=== PATIENT | male | born 1995 | race Caucasian/White ===

== ENCOUNTER 2024-03-03 15:22 | Outpatient (CLI) | payer BC, SELFPAY | END 2024-03-03 15:23 | disposition home or self-care (01) | PROVIDERS: PCP Family Medicine; Visit Provider Family Medicine | DX: R53.83 Other fatigue (principal); F33.9 Major depressive disorder, recurrent, unspecified; F41.1 Generalized anxiety disorder; Z13.6 Encounter for screening for cardiovascular disorders | CPT/HCPCS: 80053; 80061; 84443 ==

== ENCOUNTER 2024-06-21 16:13 | Emergency (ER) | payer BC, SELFPAY ==
[2024-06-21 16:25] VITALS: BP 148/87; PULSE 90; RESP 18; TEMP 37.2; O2SAT 98; BMI 29.1
--- NOTE | 2024-06-21 17:24 | CRLHL7_ITS ---
For Patients: As a result of the Cures Act, medical imaging exams and procedure reports are released immediately into your electronic medical record. You may view this report before your referring provider. If you have questions, please contact your health care provider. INDICATION: Chest pain TECHNIQUE: Chest radiograph 2 views COMPARISON: None FINDINGS: Mediastinum: The mediastinum is normal in appearance. The heart silhouette is normal in size and morphology. Lung: Both lungs are unremarkable in appearance. No sign of pleural effusion seen. No pneumothorax is identified. Bone and Soft tissue: Unremarkable for age. IMPRESSION: 1. No acute cardiopulmonary disease is seen. Dictated by: Micheal Pastor MD @ 06/21/2024 18:08:11 (Electronically Signed)
--- NOTE | 2024-06-21 17:28 | ED.CHESTPAIN ---
HPI - Chest Pain General Date Seen: 06/21/24 <Jt White MD - Last Filed: 06/21/24 18:22> Chief Complaint: Chest Pain <Jt White MD - Last Filed: 06/21/24 18:22> Stated Complaint: left chest pain/dizziness <Jt White MD - Last Filed: 06/21/24 18:22> Time Seen by Provider: 06/21/24 17:14 <Jt White MD - Last Filed: 06/21/24 18:22> Source: patient <Jt White MD - Last Filed: 06/21/24 18:22> Mode of arrival: ambulatory <Jt White MD - Last Filed: 06/21/24 18:22> Limitations: no limitations <Jt White MD - Last Filed: 06/21/24 18:22> History of Present Illness HPI narrative: Patient is a very nice 29-year-old gentleman who presents here with chest pain that he has had now for a few days, it comes and goes, lasting for a few minutes to 30-40. Describes is anterior chest with some radiation to his neck associated with this. He says this may be from his anxiety but he is unsure. As he has never had this before denies any history of exertional component to this or working causes it to were worsened, it has had actually happened when he has been resting laying down more consistently over the few days. He went home from work early yesterday, and did get an appointment in early June to see his primary physician but thought he should come in and get seen. Denies any elevated heart rate associated with this any leg swelling history of DVTs or pulmonary emboli. With no family history of any blood dyscrasias. Cardiac risk factors include male he does chew tobacco, but has never smoked, no history of cardiac disease or strokes in the family, no history of elevated cholesterol, diabetes, use of illicit substances, or hypertension <Jt White MD - Last Filed: 06/21/24 18:22> MD complaint: chest heaviness and chest discomfort <Jt White MD - Last Filed: 06/21/24 18:22> Onset (ago): day(s) <Jt White MD - Last Filed: 06/21/24 18:22> Timing of current episode: episodic <Jt White MD - Last Filed: 06/21/24 18:22> Prior episodes: Yes <Jt White MD - Last Filed: 06/21/24 18:22> Onset: during rest <Jt White MD - Last Filed: 06/21/24 18:22> Pain location: substernal and left chest <Jt White MD - Last Filed: 06/21/24 18:22> Pain radiation: neck and jaw/teeth <tJ White MD - Last Filed: 06/21/24 18:22> Severity: moderate <Jt White MD - Last Filed: 06/21/24 18:22> Quality: tightness and heaviness <Jt White MD - Last Filed: 06/21/24 18:22> Relieving factors: medication-other <Jt White MD - Last Filed: 06/21/24 18:22> Exacerbating factors: nothing <Jt White MD - Last Filed: 06/21/24 18:22> Treatment prior to arrival: none <Jt White MD - Last Filed: 06/21/24 18:22> Risk Factors Coronary artery disease risk factors: none <Jt White MD - Last Filed: 06/21/24 18:22> Thoracic aortic dissection risk factors: none <Jt White MD - Last Filed: 06/21/24 18:22> Related Data Home Medications: Previous Rx's ?Medication ?Instructions ?Recorded escitalopram oxalate 10 mg tablet 10 mg PO QDAY #30 tabs 04/30/24 (Lexapro) <Jt White MD - Last Filed: 06/21/24 18:22> Allergies/Adverse Reactions: Allergies Allergy/AdvReac Type Severity Reaction Status Date / Time No Known Drug Allergies Allergy Verified 06/21/24 16:31 <Jt White MD - Last Filed: 06/21/24 18:22> Review of Systems Status of ROS Reports: 10 or more systems reviewed and unremarkable except as noted in History and below <Jt White MD - Last Filed: 06/21/24 18:22> [facility] Medical History: Medical History Chewing tobacco dependence ?F17.220 - Nicotine dependence, chewing tobacco, uncomplicated (ICD-10) Dyslipidemia (02/2024) ?E78.5 - Hyperlipidemia, unspecified (ICD-10) Major depression, recurrent ?F33.9 - Major depressive disorder, recurrent, unspecified (ICD-10) ABBE (generalized anxiety disorder) ?F41.1 - Generalized anxiety disorder (ICD-10) Hx of atypical nevus ?Z87.898 - Personal history of other specified conditions (ICD-10) <Jt White MD - Last Filed: 06/21/24 18:22> Surgical History: Surgical History History of appendectomy (02/01/20) ?Z90.49 - Acquired absence of other specified parts of digestive tract (ICD-10) <Jt White MD - Last Filed: 06/21/24 18:22> Family History: Family History Mother Breast cancer, Onset Age: 56 Father Cancer Depression with anxiety Sister Depression with anxiety <Jt White MD - Last Filed: 06/21/24 18:22> Social History: Social History Narrative: 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, 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, 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, lives in [place], engaged Chews tobacco nonsmoker 8 pari/ week on average No formal exercise, does get exercise at work What is your current living situation?: I presently have a place to live Problems where you live: no known problems In the past 12 months, utilities in danger of being shut off: no In past 12 months, lack of transportation kept you from medical appts, meetings, work, or getting things needed for daily living: no In the past 12 mos, have been you worried that your food would run out before you had money to buy more?: never true In the past 12 mos, the food you bought just didn't last and you didn't have money to buy more?: never true How often does anyone, including family, friends and others, physically hurt you: never How often does anyone, including family, friends and others, insult or talk down to you: never How often does anyone, including family, friends and others, threaten you with harm: never How often does anyone, including family, friends and others, scream or curse at you: never <Jt White MD - Last Filed: 06/21/24 18:22> Exam Narrative Exam Narrative: On examination in room 4 patient is no apparent distress, alert oriented x3 slightly anxious. Pupils equal round reactive to light there is no scleral icterus redness TMs are normal oropharynx normal neck is supple full range of motion chest is good air entry bilaterally no wheezing crackles noted heart sounds are normal no clicks murmurs or gallops his abdomen is soft there is no guarding no organomegaly negative Seay sign moves all extremities independently well no swelling, no edema, skin reveals no petechiae rashes <Jt White MD - Last Filed: 06/21/24 18:22> Const Vital Signs, click to edit/add: Vital Signs - 24 hr 06/21/24 16:25 06/21/24 18:06 06/21/24 18:15 Temperature 99.0 F Pulse Rate [Pulse Oximeter] 90 Respiratory Rate 18 14 17 Blood Pressure [Right Upper Arm] 148/87 H Pulse Oximetry 98 Oxygen Delivery Method Room Air <Jt White MD - Last Filed: 06/21/24 18:22> Vital Signs - 24 hr 06/21/24 16:25 06/21/24 18:06 06/21/24 18:15 Temperature 99.0 F Pulse Rate [Pulse Oximeter] 90 Respiratory Rate 18 14 17 Blood Pressure [Right Upper Arm] 148/87 H Pulse Oximetry 98 Oxygen Delivery Method Room Air <Fatmata Garcia MD - Last Filed: 06/21/24 19:22> Documenting provider has reviewed patient's vital signs: yes <Jt White MD - Last Filed: 06/21/24 18:22> Course Vital Signs Vital signs: Initial Vital Signs Temperature 99.0 F 06/21/24 16:25 Temperature Source Temporal Artery Scan 06/21/24 16:25 Pulse Rate 90 06/21/24 16:25 Respiratory Rate 18 06/21/24 16:25 Blood Pressure 148/87 H 06/21/24 16:25 Blood Pressure Mean 107 H 06/21/24 16:25 Blood Pressure Position Sitting 06/21/24 16:25 Pulse Oximetry 98 06/21/24 16:25 Oxygen Delivery Method Room Air 06/21/24 16:25 Vital Signs Temperature 99.0 F 06/21/24 16:25 Pulse Rate 90 06/21/24 16:25 Respiratory Rate 18 06/21/24 16:25 Blood Pressure 148/87 H 06/21/24 16:25 Pulse Oximetry 98 06/21/24 16:25 Oxygen Delivery Method Room Air 06/21/24 16:25 Temperature 99.0 F 06/21/24 16:25 Pulse Rate 90 06/21/24 16:25 Respiratory Rate 17 06/21/24 18:15 Blood Pressure 148/87 H 06/21/24 16:25 Pulse Oximetry 98 06/21/24 16:25 Oxygen Delivery Method Room Air 06/21/24 16:25 <Jt White MD - Last Filed: 06/21/24 18:22> Initial Vital Signs Temperature 99.0 F 06/21/24 16:25 Temperature Source Temporal Artery Scan 06/21/24 16:25 Pulse Rate 90 06/21/24 16:25 Respiratory Rate 18 06/21/24 16:25 Blood Pressure 148/87 H 06/21/24 16:25 Blood Pressure Mean 107 H 06/21/24 16:25 Blood Pressure Position Sitting 06/21/24 16:25 Pulse Oximetry 98 06/21/24 16:25 Oxygen Delivery Method Room Air 06/21/24 16:25 Vital Signs Temperature 99.0 F 06/21/24 16:25 Pulse Rate 90 06/21/24 16:25 Respiratory Rate 18 06/21/24 16:25 Blood Pressure 148/87 H 06/21/24 16:25 Pulse Oximetry 98 06/21/24 16:25 Oxygen Delivery Method Room Air 06/21/24 16:25 Temperature 99.0 F 06/21/24 16:25 Pulse Rate 90 06/21/24 16:25 Respiratory Rate 17 06/21/24 18:15 Blood Pressure 148/87 H 06/21/24 16:25 Pulse Oximetry 98 06/21/24 16:25 Oxygen Delivery Method Room Air 06/21/24 16:25 <Fatmata Garcia MD - Last Filed: 06/21/24 19:22> Medications Administered Medications: Discontinued Medications Generic Name Dose Route Start Last Admin Trade Name Freq PRN Reason Stop Dose Admin Aspirin 324 mg 06/21/24 17:23 06/21/24 17:59 Aspirin 81 Mg Tab.Chew PO 06/21/24 17:24 324 mg ONCE ONE Administration Sodium Chloride 1,000 mls @ 1,000 mls/hr 06/21/24 17:30 06/21/24 18:45 0.9 % Sodium Chloride 1000 Ml IV 06/21/24 18:29 Infused .Q1H MIRACLE Infusion Pantoprazole Sodium 40 mg 06/21/24 17:23 06/21/24 17:59 Pantoprazole Sodium 40 Mg Inj IVP 06/21/24 17:24 40 mg ONCE ONE Administration <Jt White MD - Last Filed: 06/21/24 18:22> Discontinued Medications Generic Name Dose Route Start Last Admin Trade Name Freq PRN Reason Stop Dose Admin Aspirin 324 mg 06/21/24 17:23 06/21/24 17:59 Aspirin 81 Mg Tab.Chew PO 06/21/24 17:24 324 mg ONCE ONE Administration Sodium Chloride 1,000 mls @ 1,000 mls/hr 06/21/24 17:30 06/21/24 18:45 0.9 % Sodium Chloride 1000 Ml IV 06/21/24 18:29 Infused .Q1H M[place]LE Infusion Pantoprazole Sodium 40 mg 06/21/24 17:23 06/21/24 17:59 Pantoprazole Sodium 40 Mg Inj IVP 06/21/24 17:24 40 mg ONCE ONE Administration <Fatmata Garcia MD - Last Filed: 06/21/24 19:22> MDM - Chest Pain MDM Narrative Medical decision making narrative: During the evaluation of this patient I considered multiple differential diagnosis is. The life-threatening differential diagnosis include coronary disease/OR, pulmonary embolism, pneumothorax, pneumonia, and aortic dissection. Other differential diagnosis included but were not limited to pericarditis, myocarditis, chest wall pain, GERD, esophageal rupture, rib fracture contusion, pleurisy, as well as other etiologies. Patient's workup I think should include a troponin but we can get by with just doing 1 given his 4 day history of pain, his symptoms if his D-dimer is negative I think would be reasonable to place him on Protonix like medication, for possible reflux but a follow-up stress test would also be indicated with this. I will sign him over I have my partner for further delineation but I believe he should be able to go home, <Jt White MD - Last Filed: 06/21/24 18:22> During the evaluation of this patient I considered multiple differential diagnosis is. The life-threatening differential diagnosis include coronary disease/OR, pulmonary embolism, pneumothorax, pneumonia, and aortic dissection. Other differential diagnosis included but were not limited to pericarditis, myocarditis, chest wall pain, GERD, esophageal rupture, rib fracture contusion, pleurisy, as well as other etiologies. Patient's workup I think should include a troponin but we can get by with just doing 1 given his 4 day history of pain, his symptoms if his D-dimer is negative I think would be reasonable to place him on Protonix like medication, for possible reflux but a follow-up stress test would also be indicated with this. I will sign him over I have my partner for further delineation but I believe he should be able to go home, This patient was signed out to me by my colleague for check of D-dimer and troponin results. Both are negative and reassuring. Patient is pain-free at this time. 1. Atypical chest [id number] at this time. Patient was given Protonix in the ED. laboratory tests were reassuring. Stress test has been ordered by my colleague. Patient is to limit activity which increases heart rate greatly. Does include running, sexual activity. Return to the ER as needed for worsening discomfort. 2. Disposition-home at this time. Return as needed. <Fatmata Garcia MD - Last Filed: 06/21/24 19:22> Medical Records Data Attestation: I reviewed the patient's medical records. <Jt White MD - Last Filed: 06/21/24 18:22> Lab Data Attestation: I reviewed the patient's lab results. <Jt White MD - Last Filed: 06/21/24 18:22> Labs: Lab Results 06/21/24 06/21/24 Range/Units 17:40 18:17 WBC 7.26 (4.50-11.00) K/uL RBC 5.18 (4.30-5.90) m/uL Hgb 15.7 (13.5-17.5) gm/dL Hct 45.0 (37.0-53.0) % MCV 87 (80-100) fL MCH 30 (26-34) pg MCHC 35 (32-36) gm/dL RDW Coeff of Srinivas 12.8 (11.5-15.5) % Plt Count 221 (140-440) K/uL Neut % (Auto) 67.6 (42.0-72.0) % Lymph % (Auto) 20.5 (20-44) % [place] % (Auto) 8.0 (0.0-11.0) % Eos % (Auto) 3.4 (0.0-7.0) % Baso % (Auto) 0.4 (0.0-3.0) % Neut # (Auto) 4.90 (1.7-7.0) K/uL Lymph # (Auto) 1.49 (0.90-2.90) K/uL [place] # (Auto) 0.60 (0.00-0.90) K/UL Eos # (Auto) 0.25 (0.00-0.50) K/uL Baso # (Auto) 0.03 (0.00-0.30) K/uL Abs Immat Gran (auto) 0.01 (0.00-0.30) K/uL Imm/Tot Granulo (auto) 0.1 % INR 0.95 (0.91-1.10) APTT 25 (23-33) Seconds D-Dimer Quant (PE/DVT) < 0.27 (0.00-0.50) ug/ml Sodium 140 (135-149) mmol/L Potassium 4.3 (3.6-5.1) mmol/L Chloride 102 (96-114) mmol/L Carbon Dioxide 29 (20-32) mmol/L Anion Gap 9 (7-15) mEq/L BUN 17 (5-24) mg/dL Creatinine 0.8 (0.5-1.5) mg/dL Estimated Creat Clear 161.37 Estimated GFR 122 ml/min Glucose 105 (60-115) mg/dL Calcium 9.6 (8.4-10.6) mg/dL Total Bilirubin 0.6 (0.1-1.5) mg/dL Direct Bilirubin 0.3 (0.0-0.5) mg/dL AST 49 H (12-35) U/L ALT 68 H (4-50) U/L Alkaline Phosphatase 71 (40-150) U/L Troponin I < 0.01 (0.01-0.04) ng/mL NT-Pro-B Natriuret Pep 28 pg/mL Total Protein 7.8 (6.0-8.3) g/dL Albumin 4.8 (3.3-5.0) g/dL Lipase 45 (23-300) U/L Lab Acknowledgement Test Added <Jt White MD - Last Filed: 06/21/24 18:22> Lab Results 06/21/24 06/21/24 Range/Units 17:40 18:17 WBC 7.26 (4.50-11.00) K/uL RBC 5.18 (4.30-5.90) m/uL Hgb 15.7 (13.5-17.5) gm/dL Hct 45.0 (37.0-53.0) % MCV 87 (80-100) fL MCH 30 (26-34) pg MCHC 35 (32-36) gm/dL RDW Coeff of Srinivas 12.8 (11.5-15.5) % Plt Count 221 (140-440) K/uL Neut % (Auto) 67.6 (42.0-72.0) % Lymph % (Auto) 20.5 (20-44) % [place] % (Auto) 8.0 (0.0-11.0) % Eos % (Auto) 3.4 (0.0-7.0) % Baso % (Auto) 0.4 (0.0-3.0) % Neut # (Auto) 4.90 (1.7-7.0) K/uL Lymph # (Auto) 1.49 (0.90-2.90) K/uL [place] # (Auto) 0.60 (0.00-0.90) K/UL Eos # (Auto) 0.25 (0.00-0.50) K/uL Baso # (Auto) 0.03 (0.00-0.30) K/uL Abs Immat Gran (auto) 0.01 (0.00-0.30) K/uL Imm/Tot Granulo (auto) 0.1 % INR 0.95 (0.91-1.10) APTT 25 (23-33) Seconds D-Dimer Quant (PE/DVT) < 0.27 (0.00-0.50) ug/ml Sodium 140 (135-149) mmol/L Potassium 4.3 (3.6-5.1) mmol/L Chloride 102 (96-114) mmol/L Carbon Dioxide 29 (20-32) mmol/L Anion Gap 9 (7-15) mEq/L BUN 17 (5-24) mg/dL Creatinine 0.8 (0.5-1.5) mg/dL Estimated Creat Clear 161.37 Estimated GFR 122 ml/min Glucose 105 (60-115) mg/dL Calcium 9.6 (8.4-10.6) mg/dL Total Bilirubin 0.6 (0.1-1.5) mg/dL Direct Bilirubin 0.3 (0.0-0.5) mg/dL AST 49 H (12-35) U/L ALT 68 H (4-50) U/L Alkaline Phosphatase 71 (40-150) U/L Troponin I < 0.01 (0.01-0.04) ng/mL NT-Pro-B Natriuret Pep 28 pg/mL Total Protein 7.8 (6.0-8.3) g/dL Albumin 4.8 (3.3-5.0) g/dL Lipase 45 (23-300) U/L Lab Acknowledgement Test Added <Fatmata Garcia MD - Last Filed: 06/21/24 19:22> ECG Data Attestation: I personally reviewed and interpreted this ECG as follows: <Jt White MD - Last Filed: 06/21/24 18:22> ECG interpretation date: 06/21/24 <Jt White MD - Last Filed: 06/21/24 18:22> Prior ECG tracings: not available for review <Jt White MD - Last Filed: 06/21/24 18:22> Interpretation: EKG shows normal sinus rhythm, there is some repolarization abnormality noted across the precordial leads, and some ST wave abnormality noted in lead 3 otherwise normal. <Jt White MD - Last Filed: 06/21/24 18:22> Discharge Plan Discharge Clinical Impression: Chest pain <Jt White MD - Last Filed: 06/21/24 18:22> Patient Disposition: Home, Self-Care <Jt White MD - Last Filed: 06/21/24 18:22> Condition: Improved <Jt White MD - Last Filed: 06/21/24 18:22> Additional Instructions: Await phone call for the exact date and time of the stress test. Would recommend no high intense activity or anything that accelerate her heart rate until you have the stress test. Return to the ER for worsening symptoms. <Jt White MD - Last Filed: 06/21/24 18:22> Prescriptions: No Action escitalopram oxalate [Lexapro] 10 mg tablet 10 mg PO QDAY Qty: 30 0RF <Jt White MD - Last Filed: 06/21/24 18:22> Follow Up/Referrals: Yee Dickerson MD [Primary Care Provider] - <Jt White MD - Last Filed: 06/21/24 18:22> Stand Alone Forms: [employer] Info Instructions <Jt White MD - Last Filed: 06/21/24 18:22>
[2024-06-21] MEDS: 0.9 % SODIUM CHLORIDE 1000 ml 1,000 ML IV (17:59)
[2024-06-21] MEDS: ASPIRIN 81 MG TAB.CHEW 324 MG PO (17:59)
[2024-06-21] MEDS: PANTOPRAZOLE SODIUM 40 MG INJ IVP (17:59)
[2024-06-21 18:00] LABS: Basophils Absolute Auto 0.03 K/uL (0.00-0.30); Basophils Percent Auto 0.4 % (0.0-3.0); Eosinophils Absolute Auto 0.25 K/uL (0.00-0.50); Eosinophils Percent Auto 3.4 % (0.0-7.0); Hemoglobin* 15.7 gm/dL (13.5-17.5); Immature Granulocytes Abs Auto 0.01 K/uL (0.00-0.30); Immature Granulocytes Pct Auto 0.1 %; Lymphocytes Absolute Auto 1.49 K/uL (0.90-2.90); Lymphocytes Percent Auto 20.5 % (20-44); Mean Corpuscular HGB Conc 35 gm/dL (32-36); Mean Corpuscular Hemoglobin 30 pg (26-34); Mean Corpuscular Volume 87 fL (80-100); Neutrophils Percent Auto 67.6 % (42.0-72.0); Platelet Count* 221 K/uL (140-440); RDW Coefficient of Variation % 12.8 % (11.5-15.5); Red Blood Count 5.18 m/uL (4.30-5.90); White Blood Count* 7.26 K/uL (4.50-11.00)
[2024-06-21 18:03] LABS: Albumin* 4.8 g/dL (3.3-5.0); Chloride* 102 mmol/L (96-114); Potassium* 4.3 mmol/L (3.6-5.1); Slide Review Reflex No; Sodium* 140 mmol/L (135-149)
[2024-06-21 18:06] VITALS: RESP 14
[2024-06-21 18:06] LABS: Alanine Aminotransferase* 68 U/L (4-50); Alkaline Phosphatase* 71 U/L (40-150); Anion Gap 9 mEq/L (7-15); Aspartate Amino Transferase* 49 U/L (12-35); Bilirubin Direct* 0.3 mg/dL (0.0-0.5); Bilirubin Total* 0.6 mg/dL (0.1-1.5); Blood Urea Nitrogen* 17 mg/dL (5-24); Calcium* 9.6 mg/dL (8.4-10.6); Carbon Dioxide* 29 mmol/L (20-32); Creatinine* 0.8 mg/dL (0.5-1.5); Est. Creatinine Clearance* 161.37; Estimated Glomerular Filt Rate 122 ml/min; Glucose* 105 mg/dL (60-115); Lipase* 45 U/L (23-300); Total Protein* 7.8 g/dL (6.0-8.3)
[2024-06-21 18:11] LABS: INR 0.95 (0.91-1.10); Prothrombin Time 13.4 Seconds
[2024-06-21 18:12] LABS: Partial Thromboplastin Time* 25 Seconds (23-33)
[2024-06-21 18:15] VITALS: RESP 17
[2024-06-21 18:17] LABS: NT Pro B Type NatriureticPept* 28 pg/mL; Troponin I* < 0.01 ng/mL (0.01-0.04)
[2024-06-21 18:57] LABS: D Dimer Quantitative* < 0.27 ug/ml (0.00-0.50)
== END 2024-06-21 19:28 | disposition home or self-care (01) ==
PROVIDERS: Family Medicine; Emergency Provider Family Medicine; PCP Family Medicine
DX: R07.9 Chest pain, unspecified (principal); F17.220 Nicotine dependence, chewing tobacco, uncomplicated
CPT/HCPCS: 36415; 71046; 80048; 80076; 83690; 83880; 84484; 85025; 85379; 85610; 85730; 93005; 94761; 96374; 99284; 99285; A9270; J2470; J7030

== ENCOUNTER 2024-06-29 12:40 | Outpatient (CLI) | payer BC, SELFPAY ==
[2024-06-29] MEDS: PERFLUTREN LIPID MICROSPHERES 2 ML VIAL IVP (13:49)
[2024-06-29 13:51] VITALS: BP 150/70; PULSE 100; RESP 18
--- NOTE | 2024-06-29 13:55 | W.PM.STED ---
Stress Test Note Date Date of test: 06/29/24 Providers Primary care provider: Yee Dickerson Stress test physician: Jt White Stress Test Note Stress test ordered: Stress Echo Indication for test: Chest pain Stress test medicine: Definity Results discussion: Patient is seen, cardiac stress test medical history form is reviewed. Discussion of the risks benefits and side effects, and he would like to proceed. Pretest EKG shows normal sinus rhythm with a ventricular rate of 69 blood pressure 118/92, there is no ST wave changes suggestive of ischemia. Standard Nader protocol is employed over a time course of 10 minutes. He reach the target heart rate. Unfortunately the printout did not specify an actual percentage. During this test there is no ST wave changes suggestive of ischemia, no dysrhythmias are noted, he recovered normally. Subjectively there is no chest pain shortness of breath or any other anginal equivalent. Impression: Negative electrographic portion stress echo, both objectively and subjectively negative. Follow up suggested: Await echo images these will be reviewed by Cardiology, patient left this testing facility in good condition, there were no complications.
== END 2024-06-29 14:02 | disposition home or self-care (01) ==
PROVIDERS: PCP Family Medicine; Visit Provider Family Medicine
DX: R07.9 Chest pain, unspecified (principal)
CPT/HCPCS: 93016; 93325; 93351; Q9957